=== PATIENT | female | born 1970 | race Caucasian/White ===

== ENCOUNTER 2018-03-04 20:22 | Emergency (ER) | payer BC, MEDICAID ==
[2018-03-04 20:53] VITALS: RESP 18
[2018-03-04] MEDS ORDERED: Lidocaine 5% Patch TD STA (21:54)
--- NOTE | 2018-03-04 23:23 | ED PDOC ---
Arrival/HPI - General Chief Complaint: Upper Extremity Problem/Injury Time Seen by Provider: 03/04/18 20:54 Historian: Patient - History of Present Illness Narrative History of Present Illness (Text): 03/04/18 23:48 48 yo F c/o R shoulder pain which started yesterday AM, reports that the pain is worse tonight. Denies any fevers, chills, headache, neck pain, back pain, numbness, trauma, injury, other joint pain. Past Medical History - Infectious Disease Hx of Infectious Diseases: None - Reproductive Menopause: Yes - Cardiac Hx Cardiac Disorders: No - Pulmonary Hx Respiratory Disorders: Yes Hx Asthma: Yes - Neurological Hx Neurological Disorder: No - HEENT Hx HEENT Disorder: No - Renal Hx Renal Disorder: No - Endocrine/Metabolic Hx Endocrine Disorders: No - Hematological/Oncological Hx Blood Disorders: No - Integumentary Hx Dermatological Disorder: No - Musculoskeletal/Rheumatological Hx Musculoskeletal Disorders: No - Gastrointestinal Hx Gastrointestinal Disorders: No - Genitourinary/Gynecological Hx Genitourinary Disorders: No - Psychiatric Hx Psychophysiologic Disorder: No Hx Substance Use: No - Surgical History Hx Section: Yes - Anesthesia Hx Anesthesia: Yes Hx Anesthesia Reactions: No Hx Malignant Hyperthermia: No Family/Social History Family/Social History: No Known Family HX Smoking Status: Never Smoked Hx Alcohol Use: No Hx Substance Use: No Allergies/Home Meds Allergies/Adverse Reactions: Allergies acetaminophen [From Tylenol] Allergy (Verified 03/04/18 20:49) SHORTNESS OF BREATH Penicillins Allergy (Verified 03/04/18 20:49) ITCHING Home Medications: Home Meds Medication Instructions Recorded Confirmed Albuterol 0.083% [Albuterol 0.083% 1 inh INH Q6H PRN 03/04/18 03/04/18 Inhal Maritza (2.5 mg/3 ml) UD] predniSONE [predniSONE Tab] 10 mg PO BID 03/04/18 03/04/18 Review of Systems - Review of Systems Constitutional: absent: Fatigue, Fevers Musculoskeletal: Arthralgias. absent: Neck Pain Skin: absent: Rash, Pruritis, Skin Lesions Physical Exam Vital Signs Temp Pulse Resp BP Pulse Ox 03/04/18 20:52 98.8 F 82 18 155/97 H 97 Temperature: Afebrile Blood Pressure: Hypertensive Pulse: Regular Respiratory Rate: Normal Appearance: Positive for: Well-Appearing, Non-Toxic, Comfortable Pain Distress: Moderate Mental Status: Positive for: Alert and Oriented X 3 - Systems Exam Head: Present: Atraumatic, Normocephalic Mouth: Present: Moist Mucous Membranes Neck: Present: Normal Range of Motion. No: MIDLINE TENDERNESS, Paraspinal Tenderness Back: Present: Normal Inspection. No: Midline Tenderness, Paraspinal Tenderness Upper Extremity: Present: Normal Inspection, NORMAL PULSES, Tenderness (+tenderness to the R shoulder), Neurovascularly Intact, Capillary Refill < 2s. No: Cyanosis, Edema, Swelling, Erythema, Deformity Lower Extremity: Present: Normal Inspection. No: Edema Neurological: Present: GCS=15, CN II-XII Intact, Speech Normal Skin: Present: Warm, Dry, Normal Color. No: Rashes Psychiatric: Present: Alert, Oriented x 3, Normal Insight, Normal Concentration Medical Decision Making ED Course and Treatment: 03/04/18 23:20 Plan : - toradol IM - lidoderm patch - XR R shoulder XR R shoulder : no fracture, no dislocation, +calcification. On reevaluation, patient reports improvement of symptoms. On exam, patient remains awake alert and oriented 3 in no acute distress. Sling applied. XR results d/w the patient. Diagnosis of calcific tendonitis d/w the patient. Advised to follow up with ortho in 1-2 days without fail. Advised to take medication as prescribed. Return to the emergency room at any time for any new or worsening symptoms. Patient states she fully agrees with and understands discharge instructions. States that she agrees with the plan and disposition. Verbalized and repeated discharge instructions and plan. I have given the patient opportunity to ask any additional questions. - RAD Interpretation Radiology Orders: 03/04/18 21:54 SHOULDER RIGHT [RAD] Stat - Medication Orders Current Medication Orders: Discontinued Medications Ketorolac Tromethamine (Toradol) 60 mg IM STAT STA Stop: 03/04/18 21:55 Last Admin: 03/04/18 22:08 Dose: 60 mg MAR Pain Assessment Document 03/04/18 22:08 LA (Rec: 03/04/18 22:09 LA [id number]) Pain Reassessment Is this a pain reassessment? No Sleep Is patient sleeping during reassessment? No Description Intensity of Pain at present 9 IM Administration Charges Document 03/04/18 22:08 LA (Rec: 03/04/18 22:09 LA [id number]) Injection Site MAR Injection Site Right Gluteus Medius Charges for Administration # of IM Administrations 1 Lidocaine (Lidoderm) 1 ea TD STAT STA Stop: 03/04/18 21:55 Last Admin: 03/04/18 22:08 Dose: 1 ea MAR Transdermal Patch Site Document 03/04/18 22:08 LA (Rec: 03/04/18 22:08 LA [id number]) Transdermal Patch Site Transdermal Patch Site Right Shoulder Disposition/Present on Arrival - Present on Arrival Any Indicators Present on Arrival: No History of DVT/PE: No History of Uncontrolled Diabetes: No Urinary Catheter: No History of Decub. Ulcer: No History Surgical Site Infection Following: None - Disposition Have Diagnosis and Disposition been Completed?: Yes Diagnosis: Calcific tendonitis of right shoulder Disposition: HOME/ ROUTINE Disposition Time: 23:00 Patient Plan: Discharge Patient Problems: Current Active Problems Problem Status Onset Calcific tendonitis of right shoulder Acute Condition: STABLE Discharge Instructions (ExitCare): Calcific Tendonitis of the Shoulder (DC) Additional Instructions: Thank you for letting us take care of you today. You were treated for R shoulder calcific tendonitis. The emergency medical care you received today was directed at your acute symptoms. If you were prescribed any medication, please fill it and take as directed. It may take several days for your symptoms to resolve. Return to the Emergency Department if your symptoms worsen, do not improve, or if you have any other problems. Please contact your doctor in 2 days for re-evaluation and follow up / or call one of the physicians/clinics you have been referred to that are listed on the Patient Visit Information form that is included in your discharge packet. Bring any paperwork you were given at discharge with you along with any medications you are taking to your follow up visit. Our treatment cannot replace ongoing medical care by a primary care provider (PCP) outside of the emergency department. Thank you for allowing the [facility] team to be part of your care today. If you had an X-Ray : A Radiologist will review the ED reading if any change in treatment is needed we will contact you. Prescriptions: Lidocaine 5% [Lidoderm] 1 ea TD Q12H PRN #20 patch PRN Reason: Pain, Moderate (4-7) Naproxen 500 mg PO BID #30 tab Referrals: Bonny Mancilla MD [Primary Care Provider] - Follow up with primary Carroll Camara DO [Staff Provider] - Follow up with primary Forms: [employer] (Kinyarwanda), WORK NOTE
[2018-03-04 23:38] VITALS: BP 121/77; PULSE 76; TEMP 98.9; O2SAT 96
--- NOTE | 2018-03-05 09:45 | RAD ---
Date of service: 03/04/2018 PROCEDURE: Radiographs of the Right Shoulder HISTORY: pain COMPARISON: No prior. FINDINGS: BONES: Normal. No fracture. JOINTS: Normal. Glenohumeral and acromioclavicular joints preserved. No osteoarthritis. SOFT TISSUES: There is a 6 x 24 mm calcification adjacent to the humeral head consistent with calcific tendonitis OTHER FINDINGS: None. IMPRESSION: There is a 6 x 24 mm calcification adjacent to the humeral head consistent with calcific tendonitis
== END 2018-03-04 23:51 | disposition home or self-care (01) ==
LOC: ED 20:22
DX: M75.31 Calcific tendinitis of right shoulder (principal)
CPT/HCPCS: 73030; 96372; 99284; J1885